=== PATIENT | male | born 1960 | race African-American/Black ===

== ENCOUNTER 2018-11-27 13:22 | Emergency (ER) | payer OTHER ==
--- OUTSIDE RECORDS SUMMARY | 2018-11-27 13:25 | XMS REPORT ---
:1960 Author Organization [employer] Care Team Providers Name Role Phone Joce Rodríguez Provider Role Unavailable Allergies No Known Allergies Problems Problem Type Condition Code Onset Dates Condition Status Problem Primary osteoarthritis of right knee M17.11 Active Medications No Known Medications Results No Known Results Summary Purpose [employer] Submission
--- NOTE | 2018-11-27 14:35 | ER ---
Nurse's Notes [facility] Name: Ramírez Cabrera Age: 58 yrs Sex: Male : 1960 Arrival Date: 11/27/2018 Time: 13:57 Bed 14 Private MD: Diagnosis: Acute embolism and thrombosis of other specified deep vein of right lower extremity Presentation: 11/27 14:12 Presenting complaint: Patient states: PT AT OUTPATIENT IMAGING FOR PRE-OP, SENT TO ER bp FOR POSITIVE DVT. Transition of care: patient was not received from another setting of care. Onset of symptoms is unknown. Risk Assessment: Do you want to hurt yourself or someone else? Patient reports no desire to harm self or others. Initial Sepsis Screen: Does the patient meet any 2 criteria? No. Patient's initial sepsis screen is negative. Does the patient have a suspected source of infection? No. Patient's initial sepsis screen is negative. Care prior to arrival: None. 14:12 Method Of Arrival: Ambulatory bp 14:12 Acuity: TARA 3 bp Triage Assessment: 14:12 General: Appears in no apparent distress. comfortable, Behavior is calm, cooperative, bp appropriate for age. Pain: Complains of pain in right leg. EENT: No deficits noted. Neuro: No deficits noted. Cardiovascular: No deficits noted. Respiratory: No deficits noted. GI: No signs and/or symptoms were reported involving the gastrointestinal system. : No signs and/or symptoms were reported regarding the genitourinary system. Derm: No deficits noted. Musculoskeletal: No deficits noted. Historical: - Allergies: 14:23 No Known Allergies; bp - Home Meds: 14:23 metformin 500 mg Oral tab 1 tab 2 times per day [Active]; lisinopril 5 mg Oral tab 1 bp tab once daily [Active]; - PMHx: 14:23 Hypertension; Diabetes - NIDDM; bp - Immunization history:: Adult Immunizations up to date. - Social history:: Smoking status: Patient/guardian denies using tobacco. - Ebola Screening: : No symptoms or risks identified at this time. Screenin:25 Abuse screen: Denies threats or abuse. Denies injuries from another. Nutritional bp screening: No deficits noted. Tuberculosis screening: No symptoms or risk factors identified. Fall Risk None identified. Assessment: 14:24 General: SEE TRIAGE NOTE. bp 14:46 Reassessment: D/C ON HOLD FOR MED FROM PHARMACY. bp 15:12 Reassessment: PT D/C HOME AMBULATORY WITH FAMILY, DX WITH ACUTE EMBOLISM. bp Vital Signs: 14:23 BP 126 / 61; Pulse 83; Resp 16; Temp 97.8; Pulse Ox 96% ; Weight 106.59 kg; Height 6 bp ft. (182.88 cm); 15:11 BP 121 / 65; Pulse 70; Resp 16; Temp 97.8; Pulse Ox 99% ; bp 14:23 Body Mass Index 31.87 (106.59 kg, 182.88 cm) bp ED Course: 13:57 Patient arrived in ED. iw 14:00 Sher Patel MD is Attending Physician. 14:12 Tacho Marino, RN is Primary Nurse. bp 14:16 Triage completed. bp 14:23 Arm band placed on. bp 14:25 Patient has correct armband on for positive identification. Bed in low position. Call bp light in reach. Side rails up X2. 15:12 No provider procedures requiring assistance completed. Patient did not have IV access bp during this emergency room visit. Administered Medications: 15:11 Drug: Xarelto 15 mg Route: PO; bp 15:13 Follow up: Response: Medication administered at discharge. bp Outcome: 14:34 Discharge ordered by . 15:12 Discharged to home ambulatory, with family. bp 15:12 Condition: stable 15:12 Discharge instructions given to patient, Instructed on discharge instructions, follow up and referral plans. medication usage, Demonstrated understanding of instructions, follow-up care, medications, Prescriptions given X 1. 15:13 Patient left the ED. bp Signatures: Ghislaine Jean RN RN Sher Patel MD MD Tacho Marino, RN RN bp
--- NOTE | 2018-11-27 14:36 | EDPHYS ---
Physician Documentation [facility] Name: Ramírez Cabrera Age: 58 yrs Sex: Male : 1960 Arrival Date: 11/27/2018 Time: 13:57 Bed 14 Private MD: ED Physician Sher Patel HPI: 11/27 14:31 This 58 yrs old Black Male presents to ER via Ambulatory with complaints of dvt r leg. gs 14:31 The complaints affect the right cooney. Onset: The symptoms/episode began/occurred gs yesterday. Associated signs and symptoms: Pertinent negatives numbness. Severity of symptoms: At their worst the symptoms were moderate, in the emergency department the symptoms are unchanged. The patient has not experienced similar symptoms in the past. Historical: - Allergies: 14:23 No Known Allergies; bp - Home Meds: 14:23 metformin 500 mg Oral tab 1 tab 2 times per day [Active]; lisinopril 5 mg Oral tab 1 bp tab once daily [Active]; - PMHx: 14:23 Hypertension; Diabetes - NIDDM; bp - Immunization history:: Adult Immunizations up to date. - Social history:: Smoking status: Patient/guardian denies using tobacco. - Ebola Screening: : No symptoms or risks identified at this time. ROS: 14:31 All other systems are negative. gs Exam: 14:31 Head/Face: Normocephalic, atraumatic. Eyes: Pupils equal round and reactive to light, gs extra-ocular motions intact. Lids and lashes normal. Conjunctiva and sclera are non-icteric and not injected. Cornea within normal limits. Periorbital areas with no swelling, redness, or edema. ENT: Nares patent. No nasal discharge, no septal abnormalities noted. Tympanic membranes are normal and external auditory canals are clear. Oropharynx with no redness, swelling, or masses, exudates, or evidence of obstruction, uvula midline. Mucous membranes moist. Neck: Trachea midline, no thyromegaly or masses palpated, and no cervical lymphadenopathy. Supple, full range of motion without nuchal rigidity, or vertebral point tenderness. No Meningismus. Chest/axilla: Normal chest wall appearance and motion. Nontender with no deformity. No lesions are appreciated. Cardiovascular: Regular rate and rhythm with a normal S1 and S2. No gallops, murmurs, or rubs. Normal PMI, no JVD. No pulse deficits. Respiratory: Lungs have equal breath sounds bilaterally, clear to auscultation and percussion. No rales, rhonchi or wheezes noted. No increased work of breathing, no retractions or nasal flaring. Abdomen/GI: Soft, non-tender, with normal bowel sounds. No distension or tympany. No guarding or rebound. No evidence of tenderness throughout. Back: No spinal tenderness. No costovertebral tenderness. Full range of motion. Skin: Warm, dry with normal turgor. Normal color with no rashes, no lesions, and no evidence of cellulitis. Neuro: Awake and alert, GCS 15, oriented to person, place, time, and situation. Cranial nerves II-XII grossly intact. Motor strength 5/5 in all extremities. Sensory grossly intact. Cerebellar exam normal. Normal gait. 14:31 Constitutional: The patient appears alert, awake. 14:31 Musculoskeletal/extremity: Circulation is intact in all extremities. Sensation intact. DVT Exam: tenderness, that is moderate, of the right leg. Vital Signs: 14:23 BP 126 / 61; Pulse 83; Resp 16; Temp 97.8; Pulse Ox 96% ; Weight 106.59 kg; Height 6 bp ft. (182.88 cm); 15:11 BP 121 / 65; Pulse 70; Resp 16; Temp 97.8; Pulse Ox 99% ; bp 14:23 Body Mass Index 31.87 (106.59 kg, 182.88 cm) bp MDM: 14:20 Patient medically screened. gs 14:31 Differential diagnosis: dvt. Data reviewed: vital signs, nurses notes. Data reviewed: old medical records, lab test result(s). Counseling: I had a detailed discussion with the patient and/or guardian regarding: the historical points, exam findings, and any diagnostic results supporting the discharge/admit diagnosis, radiology results, the need for outpatient follow up. Response to treatment: the patient's symptoms have mildly improved after treatment. 14:38 ED course: gave 15 mg xarelto bid x 21 days. gs Administered Medications: 15:11 Drug: Xarelto 15 mg Route: PO; bp 15:13 Follow up: Response: Medication administered at discharge. bp Disposition: 11/27/18 14:34 Discharged to Home. Impression: Acute embolism and thrombosis of other specified deep vein of right lower extremity. - Condition is Stable. - Discharge Instructions: Deep Vein Thrombosis, Venous Thromboembolism. - Prescriptions for Xarelto 10 mg Oral tablet - take 1 tablet by ORAL route 2 times per day for 21 days; 41 tablet. - Medication Reconciliation Form, Thank You Letter, Antibiotic Education, Prescription Opioid Use form. - Follow up: Private Physician; When: 1 - 2 days; Reason: Re-evaluation by your physician. Signatures: Sher Patel MD MD gs Peltier, Brian RN RN bp Corrections: (The following items were deleted from the chart) 15:13 14:34 11/27/2018 14:34 Discharged to Home. Impression: Acute embolism and thrombosis of bp other specified deep vein of right lower extremity. Condition is Stable. Forms are Medication Reconciliation Form, Thank You Letter, Antibiotic Education, Prescription Opioid Use. Follow up: Private Physician; When: 1 - 2 days; Reason: Re-evaluation by your physician. alla
[2018-11-27] MEDS ORDERED: RIVAROXABAN 15 MG TABLET PO ONE (15:00)
--- NOTE | 2018-11-28 07:28 | EKG ---
Test Date: 2018-11-27 Test Time: 14:08:22 Disulfurizer Tender: SAMIR MEASUREMENT RESULTS: Intervals: Rate: 65 WI: 152 QRSD: 74 QT: 380 QTc: 395 [place]: P: 50 WI: 152 QRS: 6 T: 43 INTERPRETIVE STATEMENTS: Normal sinus rhythm Normal ECG Compared to ECG 11/23/2018 08:59:23 Myocardial infarct finding no longer present Electronically Signed On 11-28-18 07:27:06 CDT by Hossein Michael
== END 2018-11-27 15:13 | disposition home or self-care (01) ==
LOC: ER 13:22
DX: I82.491 Acute embolism and thrombosis of other specified deep vein of right lower extremity (principal); I10 Essential (primary) hypertension; E11.9 Type 2 diabetes mellitus without complications
CPT/HCPCS: 93005; 99283

== ENCOUNTER → 2024-07-13 | Day surgery (SDC) | payer OTHER ==
--- NOTE | 2024-07-13 11:52 | RAD REPORT ---
PAROTID LESION FNA PREPROCEDURE DIAGNOSIS: Left parotid gland lesion. R22.1 PROCEDURE: Left parotid gland FNA. SPECIMEN: Cyst fluid, approximately 2 mL TECHNIQUE: Prior to the procedure , the risks and benefits of a parotid gland FNA were explained with the patien t which consented fully to the procedure. Real-time ultrasound was used to identify the cystic lesion in the left parotid gland. The neck was t hen prepped and draped in the usual sterile fashion. Lidocaine was used to anesthetize the skin and soft tissues down towards the parotid lesion. Single F NA needle was then placed using ultrasound guidance into the cystic lesion and fluid was aspirated. Approximately 2 mL's of cystic somewhat pinkish fluid was obtained. The cyst did not completely colla pse and contains some slightly thicker material. The fluid was sent to pathology. The patient tolerated the procedure well without immediate post procedure complication. IMPRESSION: Technically successful ultrasound-guided FNA procedure left parotid gland lesion.
== END ==
LOC: FNA 08:54
PROVIDERS: ATTEND Otolaryngology
PROC: 0CBJ3ZX Excision of Minor Salivary Gland, Percutaneous Approach, Diagnostic (ICD-10-PCS; principal; 2024-07-13)
DX: D11.0 Benign neoplasm of parotid gland (principal)
CPT/HCPCS: 88162